=== PATIENT | female | born 2000 | race Caucasian/White ===

== ENCOUNTER 2022-08-02 15:06 | Inpatient (IN) | payer BC ==
[2022-08-02] MEDS ORDERED: ALBUTEROL NEBULIZED 2.5 MG/3 ML INHALATION STA (16:28)
[2022-08-02] MEDS ORDERED: IPRATROPIUM 0.5 MG/2.5 ML NEBU INHALATION STA (16:28)
[2022-08-02] MEDS ORDERED: DEXAMETHASONE SOD PHOSPHATE 10 MG/ML 1 ML VIAL IVP STA (16:28)
[2022-08-02] MEDS: MAGNESIUM SULFATE-D5W PMX 1 GM in DEXTROSE/WATER 1 100ML.BAG IVPB SCH ×2 (16:42→17:58)
[2022-08-02 16:57] LABS: Basophils # (A) 0.1 k/uL (0-0.2); Basophils % (A) 0 %; Eosinophils # (A) 0.4 k/uL (0-0.7); Eosinophils % (A) 3 %; HCT 42.8 % (34.0-46.0); HGB 14.9 gm/dL (11.4-16.0); Lymphocytes # (A) 0.6 k/uL (1.0-4.8); Lymphocytes % (A) 4 %; MCH 30.5 pg (25.0-35.0); MCHC 34.8 g/dL (31.0-37.0); MCV 87.4 fL (80.0-100.0); Mean Platelet Volume 8.4; Monocytes # (A) 0.6 k/uL (0-1.0); Monocytes % (A) 4 %; Neutrophils # (A) 15.5 k/uL (1.3-7.7); Neutrophils % (A) 90 %; Platelet Count 275 k/uL (150-450); RBC 4.89 m/uL (3.80-5.40); RDW 13.6 % (11.5-15.5); WBC 17.4 k/uL (3.8-10.6)
[2022-08-02 17:06] LABS: ALT 20 U/L (4-34); AST 19 U/L (14-36); African American GFR (CKD) >90 (>60 ml/min/1.73 sqM); Albumin 4.7 g/dL (3.5-5.0); Alkaline Phosphatase 124 U/L (38-126); Anion Gap 10 mmol/L; Blood Urea Nitrogen 17 mg/dL (7-17); Calcium 9.3 mg/dL (8.4-10.2); Carbon Dioxide 25 mmol/L (22-30); Chloride 106 mmol/L (98-107); Glucose 95 mg/dL (74-99); Magnesium 1.9 mg/dL (1.6-2.3); Non-African American GFR(CKD) >90 (>60 ml/min/1.73 sqM); Sodium 141 mmol/L (137-145); Total Bilirubin 0.5 mg/dL (0.2-1.3); Total Protein 7.6 g/dL (6.3-8.2)
[2022-08-02 17:07] LABS: Partial Thromboplastin Time 24.6 sec (22.0-30.0); Prothrombin Time 10.6 sec (9.0-12.0)
--- NOTE | 2022-08-02 17:08 | XR ---
EXAMINATION TYPE: XR chest 2V DATE OF EXAM: 08/02/2022 COMPARISON: NONE HISTORY: Short of breath TECHNIQUE: 2 view FINDINGS: Heart and mediastinum are normal. Lungs are clear. Diaphragm is normal. Bony thorax is inta ct. IMPRESSION: Normal chest.
--- NOTE | 2022-08-02 17:33 | ED ---
General Adult HPI - General Chief complaint: Shortness of Breath Stated complaint: SOB Time Seen by Provider: 08/02/22 15:54 Source: patient, family Mode of arrival: wheelchair Limitations: no limitations - History of Present Illness Initial comments: This is a 21-year-old female with a past medical history including asthma presents emergency department for increasing terms of breath. The patient stated that this shortness of breath began acutely at 9:30 PM last night. The patient stated that she has had multiple breathing treatments at home without any relief so she came to the emergency department. The patient did state that she had to sit upright and tripoding or to help her breathing. The patient was also speaking in shortened sentences secondary to tachypnea and shortness of breath. The patient stated that she has never been hospitalized for her asthma and has never been intubated. The patient did state though she has intermittent issues with asthma for the last several years. The patient is not on a long acting inhaled inhaler. The patient denied any other acute pain or complaints but did state that the weather changes are usually to blame for her exacerbations of her asthma. The patient denied any recent sick contacts and denied any fevers and chills. - Related Data Home Medications Medication Instructions Recorded Confirmed Albuterol Nebulized [Ventolin 2.5 mg INHALATION RT-Q4H 08/02/22 08/02/22 Nebulized] Albuterol Sulfate [Albuterol 2 puff PO RT-QID PRN 08/02/22 08/02/22 Sulfate Hfa] norgestimate-ethinyl estradioL 1 tab PO DAILY 08/02/22 08/02/22 [Irw-Vn-Zwzyqwaj Tablet] Allergies Allergy/AdvReac Type Severity Reaction Status Date / Time tree nut [Pecan] Allergy Anaphylaxis Verified 08/02/22 15:33 walnut Allergy Anaphylaxis Verified 08/02/22 15:33 Review of Systems ROS Statement: Those systems with pertinent positive or pertinent negative responses have been documented in the HPI. ROS Other: All systems not noted in ROS Statement are negative. Past Medical History Past Medical History: Asthma History of Any Multi-Drug Resistant Organisms: None Reported Past Psychological History: No Psychological Hx Reported Smoking Status: Never smoker Past Alcohol Use History: Occasional Past Drug Use History: None Reported General Exam Limitations: no limitations General appearance: alert, other (Tachypneic with respiratory distress noted, tripoding) Head exam: Present: atraumatic, normocephalic Eye exam: Present: normal appearance, PERRL Pupils: Present: normal accommodation ENT exam: Present: normal exam, normal oropharynx, mucous membranes moist Neck exam: Present: normal inspection, full ROM Respiratory exam: Present: wheezes, accessory muscle use, decreased breath sounds Cardiovascular Exam: Present: normal rhythm, tachycardia, normal heart sounds GI/Abdominal exam: Present: soft, normal bowel sounds Extremities exam: Present: normal inspection, full ROM Back exam: Present: normal inspection, full ROM Neurological exam: Present: alert, oriented X3, CN II-XII intact Psychiatric exam: Present: normal affect, normal mood Skin exam: Present: warm, dry Course Vital Signs 08/02/22 08/02/22 08/02/22 15:26 15:45 16:04 Temperature 98.3 F Pulse Rate 132 H 131 H 126 H Respiratory 18 36 H Rate Blood Pressure 123/75 O2 Sat by Pulse 89 L 87 L 91 L Oximetry 08/02/22 08/02/22 08/02/22 16:45 17:06 17:16 Temperature Pulse Rate 129 H 130 H Respiratory Rate Blood Pressure O2 Sat by Pulse 89 L Oximetry 08/02/22 18:48 Temperature Pulse Rate 123 H Respiratory 28 H Rate Blood Pressure 129/93 O2 Sat by Pulse 90 L Oximetry EKG Findings - EKG Comments: EKG Findings:: An EKG was read by myself and showed a rate of 122, MA interval 145, QRS duration 88 and QTC 383. This EKG showed sinus tachycardia without any ST segment elevations or depressions noted. There were no old EKGs for co mparison at this time. Medical Decision Making - Medical Decision Making The patient was seen and evaluated emergency department. Physical exam, the patient was resting in bed in moderate respiratory distress and tachypneic. The patient was also tachycardic on arrival as well as hypoxic at 87% on room air. Due to the nature the patient's exacerbation, a chest x-ray was obtained as was COVID-19 swab. The patient did receive albuterol and Atrovent as well as Decadron and magnesium. On reevaluation, the patient had improvement of her breathing however was still tachycardic and mildly tachypneic. Due to the patient's continued tachypnea and tachycardia in the setting of hypoxia as well, the patient did have an asthma exacerbation and did require inpatient admission. The patient's primary care physician, Dr. Godinez, was contacted and did agree for admission. He did request 125 mg of side mental every 6 as well as a DuoNeb ordered q4h. He also requested that pulmonology, Dr. Dye, be placed on consult. These orders were placed and the patient was told this plan. The patient was agreeable to this and was admitted in stable condition. - Lab Data Result diagrams: 08/02/22 16:34 08/02/22 16:34 Lab Results 08/02/22 08/02/22 08/02/22 Range/Units 16:34 16:34 16:34 WBC 17.4 H (3.8-10.6) k/uL RBC 4.89 (3.80-5.40) m/uL Hgb 14.9 (11.4-16.0) gm/dL Hct 42.8 (34.0-46.0) % MCV 87.4 (80.0-100.0) fL MCH 30.5 (25.0-35.0) pg MCHC 34.8 (31.0-37.0) g/dL RDW 13.6 (11.5-15.5) % Plt Count 275 (150-450) k/uL MPV 8.4 Neutrophils % 90 % Lymphocytes % 4 % Monocytes % 4 % Eosinophils % 3 % Basophils % 0 % Neutrophils # 15.5 H (1.3-7.7) k/uL Lymphocytes # 0.6 L (1.0-4.8) k/uL Monocytes # 0.6 (0-1.0) k/uL Eosinophils # 0.4 (0-0.7) k/uL Basophils # 0.1 (0-0.2) k/uL PT 10.6 (9.0-12.0) sec INR 1.0 (<1.2) APTT 24.6 (22.0-30.0) sec Sodium 141 (137-145) mmol/L Potassium 4.0 (3.5-5.1) mmol/L Chloride 106 (98-107) mmol/L Carbon Dioxide 25 (22-30) mmol/L Anion Gap 10 mmol/L BUN 17 (7-17) mg/dL Creatinine 0.75 (0.52-1.04) mg/dL Est GFR (CKD-EPI)AfAm >90 (>60 ml/min/1.73 sqM) Est GFR (CKD-EPI)NonAf >90 (>60 ml/min/1.73 sqM) Glucose 95 (74-99) mg/dL Calcium 9.3 (8.4-10.2) mg/dL Magnesium 1.9 (1.6-2.3) mg/dL Total Bilirubin 0.5 (0.2-1.3) mg/dL AST 19 (14-36) U/L ALT 20 (4-34) U/L Alkaline Phosphatase 124 (38-126) U/L Troponin I (0.000-0.034) ng/mL Total Protein 7.6 (6.3-8.2) g/dL Albumin 4.7 (3.5-5.0) g/dL Coronavirus (PCR) (Not Detectd) 08/02/22 08/02/22 Range/Units 16:34 16:34 WBC (3.8-10.6) k/uL RBC (3.80-5.40) m/uL Hgb (11.4-16.0) gm/dL Hct (34.0-46.0) % MCV (80.0-100.0) fL MCH (25.0-35.0) pg MCHC (31.0-37.0) g/dL RDW (11.5-15.5) % Plt Count (150-450) k/uL MPV Neutrophils % % Lymphocytes % % Monocytes % % Eosinophils % % Basophils % % Neutrophils # (1.3-7.7) k/uL Lymphocytes # (1.0-4.8) k/uL Monocytes # (0-1.0) k/uL Eosinophils # (0-0.7) k/uL Basophils # (0-0.2) k/uL PT (9.0-12.0) sec INR (<1.2) APTT (22.0-30.0) sec Sodium (137-145) mmol/L Potassium (3.5-5.1) mmol/L Chloride (98-107) mmol/L Carbon Dioxide (22-30) mmol/L Anion Gap mmol/L BUN (7-17) mg/dL Creatinine (0.52-1.04) mg/dL Est GFR (CKD-EPI)AfAm (>60 ml/min/1.73 sqM) Est GFR (CKD-EPI)NonAf (>60 ml/min/1.73 sqM) Glucose (74-99) mg/dL Calcium (8.4-10.2) mg/dL Magnesium (1.6-2.3) mg/dL Total Bilirubin (0.2-1.3) mg/dL AST (14-36) U/L ALT (4-34) U/L Alkaline Phosphatase (38-126) U/L Troponin I <0.012 (0.000-0.034) ng/mL Total Protein (6.3-8.2) g/dL Albumin (3.5-5.0) g/dL Coronavirus (PCR) Not Detected (Not Detectd) Critical Care Time Critical Care Time: Yes Total Critical Care Time: 45 Disposition Clinical Impression: Asthma with status asthmaticus Disposition: ADMITTED IP TO THIS [facility] Condition: Stable Is patient prescribed a controlled substance at d/c from ED?: No Referrals: Jairo Godinez MD [Primary Care Provider] - 1-2 days Time of Disposition: 19:40 Decision Date: 08/02/22 Decision Time: 19:40
[2022-08-02] MEDS ORDERED: NALOXONE 0.4 MG/ML 1 ML VIAL IV PRN (19:42)
[2022-08-02] MEDS ORDERED: methylPREDNISolone SOD SUCCIN 125 MG in SODIUM CHLORIDE 0.9% 100 ML IVPB SCH (19:45)
[2022-08-02] MEDS: IPRATROPIUM-ALBUTEROL 3 ML NEB INHALATION SCH ×2 (20:26→23:28)
[2022-08-02 21:48] VITALS: RESP 18
[2022-08-02] MEDS: methylPREDNISolone SOD SUCCI 125 MG/2 ML VIAL IV SCH (22:05)
[2022-08-02 22:35] LABS: Appearance,Urine Cloudy (Clear); Bilirubin,Urine Negative (Negative); Blood,Urine Negative (Negative); Color,Urine Yellow; Glucose,Urine (UA) Negative (Negative); Ketones,Urine 3+ (Negative); Leukocyte Esterase,Urine Trace (Negative); Mucus,Urine Many /hpf; Nitrite,Urine Negative (Negative); Protein,Urine 1+ (Negative); RBC,Urine 4 /hpf (0-5); Specific Gravity,Urine 1.032 (1.001-1.035); Squamous Epithelial Cell,Urine 6 /hpf (0-4); Urobilinogen,Urine <2.0 mg/dL (<2.0); WBC,Urine 8 /hpf (0-5)
[2022-08-03] MEDS: methylPREDNISolone SOD SUCCI 125 MG/2 ML VIAL IV SCH ×2 (01:57→07:59)
[2022-08-03] MEDS: IPRATROPIUM-ALBUTEROL 3 ML NEB INHALATION SCH ×2 (05:00→08:20)
[2022-08-03 07:56] VITALS: BP 121/79; TEMP 97.9
--- NOTE | 2022-08-03 10:56 | P.HPIM ---
History of Present Illness H&P Date: 08/03/22 Chief Complaint: Shortness of breath Cyn 21-year-old white female with the practice. She's currently on Symbicort, albuterol nebs solution which she does daily and albuterol HFA as needed for her asthma. She reports having stomach flu on Thursday with nausea and vomiting. She denied any diarrhea or constipation. She said the next day, Thursday, August 02 she been experiencing increased shortness of breath or wheeze from her asthma. This progressed to be quite severe and brought her to emergency room. He is tried multiple breathing treatments at home. In the emergency room she was found to be hypoxic with a pulse oximetry 87% and tachycardia, sinus at 131. She was afebrile, Covid negative. 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 This morning she feels improved after IV Solu-Medrol and Decadron, [id number]-[id number]-[id number] updrafts every 4, and some sleep. She had a noted leukocytosis with left shift. Laboratory studies otherwise were normal. Review of Systems All systems: negative Past Medical History Past Medical History: Asthma History of Any Multi-Drug Resistant Organisms: None Reported Past Psychological History: No Psychological Hx Reported Smoking Status: Never smoker Past Alcohol Use History: Occasional Past Drug Use History: None Reported Medications and Allergies Home Medications Medication Instructions Recorded Confirmed Type Albuterol Nebulized [Ventolin 2.5 mg INHALATION RT-Q4H 08/02/22 08/02/22 History Nebulized] Albuterol Sulfate [Albuterol 2 puff PO RT-QID PRN 08/02/22 08/02/22 History Sulfate Hfa] norgestimate-ethinyl estradioL 1 tab PO DAILY 08/02/22 08/02/22 History [Gnj-Ma-[id number] Tablet] Budesonide/Formoterol Fumarate 2 inh INHALATION BID 08/03/22 08/03/22 History [Symbicort 160-4.5 Mcg Inhaler] Allergies Allergy/AdvReac Type Severity Reaction Status Date / Time tree nut [Pecan] Allergy Anaphylaxis Verified 08/02/22 15:33 walnut Allergy Anaphylaxis Verified 08/02/22 15:33 Physical Exam Vitals: Vital Signs Temp Pulse Pulse Resp BP BP Pulse Ox 08/03/22 08:29 118 H 08/03/22 08:20 116 H 08/03/22 07:56 97.9 F 82 18 121/79 95 08/03/22 05:11 120 H 08/03/22 05:01 118 H 08/03/22 02:00 98.3 F 117 H 18 142/82 95 08/02/22 23:40 122 H 08/02/22 23:30 119 H 08/02/22 22:00 18 08/02/22 21:47 98.0 F 122 H 18 121/77 93 L 08/02/22 20:32 115 H 08/02/22 20:30 122 H 20 121/90 90 L 08/02/22 20:26 121 H 08/02/22 18:48 123 H 28 H 129/93 90 L 08/02/22 17:16 130 H 08/02/22 17:06 129 H 08/02/22 16:45 89 L 08/02/22 16:04 126 H 36 H 91 L 08/02/22 15:45 131 H 87 L 08/02/22 15:26 98.3 F 132 H 18 123/75 89 L Intake and Output 08/02/22 08/03/22 08/03/22 22:59 06:59 14:59 Other: # Voids 3 Weight 104.326 kg GENERAL: Well-appearing, well-nourished and in no acute distress. HEAD: Atraumatic, normocephalic. EYES: Pupils equal round and reactive to light, extraocular movements intact, sclera anicteric, conjunctiva are normal. ENT:nares patent, oropharynx clear without exudates. Moist mucous membranes. NECK: Normal range of motion, supple without lymphadenopathy or JVD, no thyromegaly LUNGS: Breath sounds with intermittent wheezing with deep breaths on inspiration, no rales or rhonchi HEART: Regular rate and rhythm without murmurs, rubs or gallops.S1S2 Normal ABDOMEN: Soft, nontender, normoactive bowel sounds. No guarding, no rebound. No masses appreciated. EXTREMITIES: Normal range of motion, no pitting or edema. No clubbing or cyanosis. NEUROLOGICAL: Cranial nerves II through XII grossly intact. Normal speech, normal gait. PSYCH: Normal mood, normal affect. SKIN: Warm, Dry, normal turgor, no rashes or lesions noted. Results CBC & Chem 7: 08/02/22 16:34 11/19/22 16:34 Labs: Abnormal Lab Results - Last 24 Hours (Table) 08/02/22 08/02/22 Range/Units 16:28 16:34 WBC 17.4 H (3.8-10.6) k/uL Neutrophils # 15.5 H (1.3-7.7) k/uL Lymphocytes # 0.6 L (1.0-4.8) k/uL Urine Appearance Cloudy H (Clear) Urine Protein 1+ H (Negative) Urine Ketones 3+ H (Negative) Ur Leukocyte Esterase Trace H (Negative) Urine WBC 8 H (0-5) /hpf Ur Squamous Epith Cells 6 H (0-4) /hpf Urine Mucus Many H (None) /hpf Chest x-ray: report reviewed Thrombosis Risk Factor Assmnt - DVT/VTE Prophylaxis DVT/VTE Prophylaxis: Low risk, early ambulation encouraged - Choose All That Apply Any of the Below Risk Factors Present?: Yes Each Factor Represents 1 point: Medical pt on bed rest Other Risk Factors: No Other congenital or acquired thrombophilia - If yes, enter type in comment: No Thrombosis Risk Factor Assessment Total Risk Factor Score: 1 Thrombosis Risk Factor Assessment Level: Low Risk Assessment and Plan (1) Asthma with status asthmaticus Current Visit: Yes Status: Acute Code(s): J45.902 - UNSPECIFIED ASTHMA WITH STATUS ASTHMATICUS SNOMED Code(s): 925235461 Plan: She is feeling much improved after having received IV Solu-Medrol 60 every 6 after receiving a bolus of 125 mg. She is receiving updrafts. We discussed her status and that she takes albuterol solution daily via nebulizer. We discussed additional medications I will and those. Because she is feeling somewhat better she's requested discharge.
--- NOTE | 2022-08-03 11:04 | P.DS ---
Providers Date of admission: 08/02/22 19:45 Expected date of discharge: 08/03/22 Attending physician: Jairo Godinez Consults: 08/02/22 19:42 Consult Physician Routine Consulting Provider: Flash Dye Consult Reason/Comments: Asthma exas Do you want consulting provider notified?: Yes, Notify in am Primary care physician: Jairo Godinez - Discharge Diagnosis(es) (1) Asthma with status asthmaticus Current Visit: Yes Status: Acute (2) Leukocytosis, unspecified Current Visit: Yes Status: Acute (3) Sinus tachycardia Current Visit: Yes Status: Acute Hospital Course: This is a 21-year-old white female with the practice. She's currently on Symbicort, albuterol nebs solution which she does daily and albuterol HFA as needed for her asthma. She reports having stomach flu on Thursday with nausea and vomiting. She denied any diarrhea or constipation. She said the next day, Thursday, August 02 she been experiencing increased shortness of breath or whe suzi from her asthma. This progressed to be quite severe and brought her to emergency room. He is tried multiple breathing treatments at home. In the emergency room she was found to be hypoxic with a pulse oximetry 87% and tachycardia, sinus at 131. She was afebrile, Covid negative. 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 This morning she feels improved after IV Solu-Medrol and Decadron, around-the- clock updrafts every 4, and some sleep. She had a noted leukocytosis with left shift. Laboratory studies otherwise were normal. 08/03/2022: Patient is doing much better. She does have a reactive leukocytosis probably from the steroids and a recent stomach flu. No evidence of any infections. She is much improved after the steroids and updraft treatments. She is requesting discharge. Patient was instructed should she have any worsening symptoms to please come back to emergency room or contact our practice immediately. Patient Condition at Discharge: Stable Plan - Discharge Summary Discharge Rx Participant: No New Discharge Prescriptions: New Montelukast [Singulair] 10 mg PO HS #30 tab predniSONE 10 mg PO DAILY 10 Days #30 tab Continue Albuterol Sulfate [Albuterol Sulfate Hfa] 2 puff PO RT-QID PRN PRN Reason: Shortness Of Breath Albuterol Nebulized [Ventolin Nebulized] 2.5 mg INHALATION RT-Q4H Budesonide/Formoterol Fumarate [Symbicort 160-4.5 Mcg Inhaler] 2 inh INHALATION BID #1 each norgestimate-ethinyl estradioL [Ycu-Kg-Gezzrapz Tablet] 1 tab PO DAILY Discharge Medication List Albuterol Nebulized [Ventolin Nebulized] 2.5 mg INHALATION RT-Q4H 08/02/22 [History] Albuterol Sulfate [Albuterol Sulfate Hfa] 2 puff PO RT-QID PRN 08/02/22 [History] norgestimate-ethinyl estradioL [Ccv-Fj-Qcrlmhcx Tablet] 1 tab PO DAILY 08/02/22 [History] Budesonide/Formoterol Fumarate [Symbicort 160-4.5 Mcg Inhaler] 2 inh INHALATION BID #1 each 08/03/22 [Rx] Montelukast [Singulair] 10 mg PO HS #30 tab 08/03/22 [Rx] predniSONE 10 mg PO DAILY 10 Days #30 tab 08/03/22 [Rx] Follow up Appointment(s)/Referral(s): Jairo Godinez MD [Primary Care Provider] - 1-2 days Flash Dye DO [Doctor of Osteopathic Medicine] - 1 Week Discharge Disposition: HOME SELF-CARE
[2022-08-03 11:57] VITALS: PULSE 112
[2022-08-03] MEDS ORDERED: ALBUTEROL NEBULIZED 2.5 MG/3 ML INHALATION SCH (12:00)
[2022-08-03] MEDS ORDERED: NORGESTIMATE ETHINYL ESTRADIOL PO SCH (12:00)
[2022-08-03] MEDS ORDERED: SYMBICORT 160-4.5 MCG INHALER INHALATION SCH (21:00)
[2022-08-03] MEDS ORDERED: MONTELUKAST 10 MG TAB PO SCH (21:00)
--- NOTE | 2022-08-04 00:29 | CONS ---
CONSULTATION This is a Pulmonary/Critical Care consultation. HISTORY OF PRESENT ILLNESS: This is a 21-year-old female who sees Dr. Godinez for her asthma. She presented to the emergency department at about 3 o'clock yesterday with an asthma flare up. She came with complaints of shortness of breath, chest tightness, cough, and wheezing. She typically takes Symbicort at home for her asthma, along with a nebulizer machine and albuterol inhaler. She has never been admitted for her asthma. She has had asthma all her life. She does not see a Sheet Metal Worker Supervisor. When I see her today, she is sitting in bed with her mother. She is on 2 L of oxygen. She is getting saline at KVO. She is feeling much better today than she did yesterday and states that she would like to be discharged home if possible. She denies any fever or chills. She used to see Dr. Andersen for her asthma. She denies any significant phlegm production. She is not sure what triggered her asthma at this time, and again, this is her only admission ever for asthma. PAST MEDICAL HISTORY: Includes only asthma. PAST SURGICAL HISTORY: Unremarkable. SOCIAL HISTORY: Negative for tobacco, alcohol, or illicit drug use. FAMILY HISTORY: Positive for COPD. 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 ALLERGIES: Include tree nuts and walnuts. HOME MEDICATIONS: As mentioned include, 1. Albuterol inhaler. 2. Albuterol updrafts. 3. control pills. 4. Symbicort. The rest of the history is not too remarkable. REVIEW OF SYSTEMS: CONSTITUTIONAL: Negative. NEUROLOGIC: Negative. HEENT: Negative. CARDIOVASCULAR: Negative. PULMONARY: Shortness of breath, chest tightness, wheezing, and cough. GI: Negative. : Negative. RHEUMATOLOGIC: Negative. IMMUNOLOGIC: Negative. DERMATOLOGIC: Negative. PHYSICAL EXAMINATION: VITAL SIGNS: Current vital signs include the temperature which is 98.2, heart rate which is 88, respiratory rate which is 22, saturations which are 98% on 2 L, and a blood pressure which is 138/69. She appears in no acute distress. Nasal O2 in place. HEENT: Grossly unremarkable. NECK: Supple. Full range of motion. No adenopathy. Neck veins are flat. CARDIOVASCULAR: Reveals regular rhythm, rate. S1, S2 normal. No heart murmur. LUNGS: Revealed some very fine expiratory wheezes. No rhonchi. No crackles. Breath sounds equal. ABDOMEN: Soft. Bowel sounds are heard. EXTREMITIES: Intact. No cyanosis, clubbing, or edema. SKIN: Without rash. NEUROLOGIC: Brief, but nonfocal. LABORATORY DATA: Include a white count 17.4, with a normal hemoglobin, hematocrit, and platelet count. Coagulation studies are normal. Sodium 141, potassium 4, chloride 106, CO2 of 25, anion gap 10, BUN 17, and creatinine 0.75. Liver function tests are normal. Testing for coronavirus was negative. A chest x-ray was done and was normal. Medications are reviewed. ASSESSMENT: Asthma exacerbation, trigger unclear. May relate to weather. PLAN: The patient may be discharged home today. We will leave that up to Dr. Godinez. She should resume her Symbicort and her nebulizer treatments and/or albuterol inhaler. In addition, the patient should be discharged home on a prednisone burst and taper. I would be happy to see her as an outpatient. No additional recommendations are made. Prognosis is guarded. MMODL / IJN: [id number] /
[2022-08-04] MEDS ORDERED: NORGESTIMATE ETHINYL ESTRADIOL PO SCH (09:00)
== END 2022-08-03 13:01 | disposition home or self-care (01) | DRG 203 ==
LOC: EC 15:06 → 4SSUR 19:45
PROVIDERS: ADMIT Family Medicine; ATTEND Family Medicine
DX: J45.902 Unspecified asthma with status asthmaticus (principal); R00.0 Tachycardia, unspecified; A08.4 Viral intestinal infection, unspecified; R09.02 Hypoxemia; Z20.822 Contact with and (suspected) exposure to COVID-19; Z79.51 Long term (current) use of inhaled steroids; Z79.899 Other long term (current) drug therapy; Z91.018 Allergy to other foods
CPT/HCPCS: 36415; 71046; 80053; 81001; 81025; 83735; 84484; 85025; 85610; 85730; 87635; 94640; 96365; 96366; 96375; 99285; 99291

== ENCOUNTER 2022-08-03 15:13 | Inpatient (IN) | payer BC ==
[2022-08-03] MEDS ORDERED: ALBUTEROL NEBULIZED 2.5 MG/3 ML INHALATION STA (15:33)
[2022-08-03 16:50] LABS: Basophils % (A) 0 %; Eosinophils # (A) 0.1 k/uL (0-0.7); Eosinophils % (A) 1 %; HGB 14.3 gm/dL (11.4-16.0); Lymphocytes # (A) 0.7 k/uL (1.0-4.8); Lymphocytes % (A) 4 %; MCH 29.8 pg (25.0-35.0); MCV 87.5 fL (80.0-100.0); Mean Platelet Volume 8.4; Monocytes # (A) 0.4 k/uL (0-1.0); Monocytes % (A) 2 %; Neutrophils # (A) 18.3 k/uL (1.3-7.7); Neutrophils % (A) 93 %; Platelet Count 286 k/uL (150-450); RDW 13.7 % (11.5-15.5); WBC 19.6 k/uL (3.8-10.6)
[2022-08-03 17:01] LABS: ALT 23 U/L (4-34); AST 22 U/L (14-36); African American GFR (CKD) >90 (>60 ml/min/1.73 sqM); Albumin 4.7 g/dL (3.5-5.0); Alkaline Phosphatase 117 U/L (38-126); Anion Gap 10 mmol/L; Blood Urea Nitrogen 16 mg/dL (7-17); Calcium 9.9 mg/dL (8.4-10.2); Carbon Dioxide 22 mmol/L (22-30); Chloride 108 mmol/L (98-107); Glucose 152 mg/dL (74-99); Magnesium 2.3 mg/dL (1.6-2.3); Non-African American GFR(CKD) >90 (>60 ml/min/1.73 sqM); Potassium 4.2 mmol/L (3.5-5.1); Sodium 140 mmol/L (137-145); Total Bilirubin 0.3 mg/dL (0.2-1.3); Total Protein 7.8 g/dL (6.3-8.2)
[2022-08-03 17:08] LABS: Partial Thromboplastin Time 23.1 sec (22.0-30.0); Prothrombin Time 10.5 sec (9.0-12.0)
--- NOTE | 2022-08-03 17:10 | ED ---
General Adult HPI - General Chief complaint: Shortness of Breath Stated complaint: asthma Source: patient Mode of arrival: ambulatory Limitations: no limitations - History of Present Illness Initial comments: This is a 21-year-old female with a past medical history including asthma presents emergency department for continued shortness of breath. The patient was admitted to the hospital last evening at stated that they discharged her from the floor this morning after not being taken off of oxygen. The patient stated that as she got home she continued to have increasing shortness of breath and inability to catch her breath. The patient then stated that she tried to self medicate at home with a nebulizer but had no relief. The patient came back to the emergency department due to increasing shortness of breath. The patient was speaking in full sentences however had artery received a breathing treatment prior to my evaluation. The patient was resting in bed comfortably but stated that she was frustrated that she was still having shortness of breath as well as increasing difficulty breathing with exertion. The patient denied any new complaints at this time. - Related Data Home Medications Medication Instructions Recorded Confirmed Albuterol Nebulized [Ventolin 2.5 mg INHALATION RT-Q4H 08/02/22 08/02/22 Nebulized] Albuterol Sulfate [Albuterol 2 puff PO RT-QID PRN 08/02/22 08/02/22 Sulfate Hfa] norgestimate-ethinyl estradioL 1 tab PO DAILY 08/02/22 08/02/22 [Ptx-Br-Vgmvgpzp Tablet] Previous Rx's Medication Instructions Recorded Budesonide/Formoterol Fumarate 2 inh INHALATION BID #1 each 08/03/22 [Symbicort 160-4.5 Mcg Inhaler] Montelukast [Singulair] 10 mg PO HS #30 tab 08/03/22 predniSONE 10 mg PO DAILY 10 Days #30 tab 08/03/22 Allergies Allergy/AdvReac Type Severity Reaction Status Date / Time tree nut [Pecan] Allergy Anaphylaxis Verified 08/03/22 15:27 walnut Allergy Anaphylaxis Verified 08/03/22 15:27 Review of Systems ROS Statement: Those systems with pertinent positive or pertinent negative responses have been documented in the HPI. ROS Other: All systems not noted in ROS Statement are negative. Past Medical History Past Medical History: Asthma History of Any Multi-Drug Resistant Organisms: None Reported Past Surgical History: No Surgical Hx Reported Past Psychological History: No Psychological Hx Reported Smoking Status: Never smoker Past Alcohol Use History: Occasional Past Drug Use History: None Reported General Exam Limitations: no limitations General appearance: alert, in no apparent distress Head exam: Present: atraumatic, normocephalic, normal inspection Eye exam: Present: normal appearance, PERRL Pupils: Present: normal accommodation ENT exam: Present: normal exam, normal oropharynx, mucous membranes moist Neck exam: Present: normal inspection Respiratory exam: Present: wheezes, decreased breath sounds Cardiovascular Exam: Present: normal rhythm, tachycardia GI/Abdominal exam: Present: soft, normal bowel sounds Extremities exam: Present: normal inspection, full ROM Back exam: Present: normal inspection, full ROM Neurological exam: Present: alert, oriented X3, CN II-XII intact Psychiatric exam: Present: normal affect, normal mood Skin exam: Present: warm, dry Course Vital Signs 08/03/22 08/03/22 08/03/22 15:24 15:33 15:41 Temperature 97.8 F Pulse Rate 124 H 120 H 113 H Respiratory 20 32 H Rate Blood Pressure 128/69 O2 Sat by Pulse 90 L 90 L Oximetry 08/03/22 08/03/22 15:52 16:35 Temperature Pulse Rate 119 H 101 H Respiratory 24 Rate Blood Pressure O2 Sat by Pulse 93 L Oximetry Medical Decision Making - Medical Decision Making The patient was seen and evaluated emergency department. On physical exam, the patient was resting in bed, with tachycardia minor tachypnea. Vital signs did show hypoxia on arrival as well as tachycardia. The patient was placed on 3 L of nasal cannula oxygen and her oxygen did increase to 93%. The patient received a breathing treatment on arrival. Because the patient continued asthma exacerbation in the setting of requiring further oxygen, the patient will require admission once again. Inhalatory pulse ox was obtained and showed 88%. Laboratory workup was also obtained at this time including a d-dimer. No EKG or cord testing or chest x-ray was performed as this was performed yesterday and was within normal limits. Laboratory workup was within normal limits and d- dimer was negative. The patient remained stable and the care physician, Dr. Godinez, was contacted and accepted the admission. He did request pulmonology consult once again as well as Singulair, Symbicort, Solu-Medrol and DuoNeb's when necessary. These original place and the patient was told this plan and was agreeable. The patient was admitted in stable condition. - Lab Data Result diagrams: 08/03/22 16:33 08/03/22 16:33 Lab Results 08/03/22 08/03/22 08/03/22 Range/Units 16:33 16:33 16:33 WBC 19.6 H (3.8-10.6) k/uL RBC 4.80 (3.80-5.40) m/uL Hgb 14.3 (11.4-16.0) gm/dL Hct 42.0 (34.0-46.0) % MCV 87.5 (80.0-100.0) fL MCH 29.8 (25.0-35.0) pg MCHC 34.0 (31.0-37.0) g/dL RDW 13.7 (11.5-15.5) % Plt Count 286 (150-450) k/uL MPV 8.4 Neutrophils % 93 % Lymphocytes % 4 % Monocytes % 2 % Eosinophils % 1 % Basophils % 0 % Neutrophils # 18.3 H (1.3-7.7) k/uL Lymphocytes # 0.7 L (1.0-4.8) k/uL Monocytes # 0.4 (0-1.0) k/uL Eosinophils # 0.1 (0-0.7) k/uL Basophils # 0.0 (0-0.2) k/uL PT 10.5 (9.0-12.0) sec INR 1.0 (<1.2) APTT 23.1 (22.0-30.0) sec D-Dimer 0.23 (<0.60) mg/L FEU Sodium 140 (137-145) mmol/L Potassium 4.2 (3.5-5.1) mmol/L Chloride 108 H (98-107) mmol/L Carbon Dioxide 22 (22-30) mmol/L Anion Gap 10 mmol/L BUN 16 (7-17) mg/dL Creatinine 0.67 (0.52-1.04) mg/dL Est GFR (CKD-EPI)AfAm >90 (>60 ml/min/1.73 sqM) Est GFR (CKD-EPI)NonAf >90 (>60 ml/min/1.73 sqM) Glucose 152 H (74-99) mg/dL Calcium 9.9 (8.4-10.2) mg/dL Magnesium 2.3 (1.6-2.3) mg/dL Total Bilirubin 0.3 (0.2-1.3) mg/dL AST 22 (14-36) U/L ALT 23 (4-34) U/L Alkaline Phosphatase 117 (38-126) U/L Troponin I (0.000-0.034) ng/mL NT-Pro-B Natriuret Pep pg/mL Total Protein 7.8 (6.3-8.2) g/dL Albumin 4.7 (3.5-5.0) g/dL 08/03/22 08/03/22 Range/Units 16:33 16:33 WBC (3.8-10.6) k/uL RBC (3.80-5.40) m/uL Hgb (11.4-16.0) gm/dL Hct (34.0-46.0) % MCV (80.0-100.0) fL MCH (25.0-35.0) pg MCHC (31.0-37.0) g/dL RDW (11.5-15.5) % Plt Count (150-450) k/uL MPV Neutrophils % % Lymphocytes % % Monocytes % % Eosinophils % % Basophils % % Neutrophils # (1.3-7.7) k/uL Lymphocytes # (1.0-4.8) k/uL Monocytes # (0-1.0) k/uL Eosinophils # (0-0.7) k/uL Basophils # (0-0.2) k/uL PT (9.0-12.0) sec INR (<1.2) APTT (22.0-30.0) sec D-Dimer (<0.60) mg/L FEU Sodium (137-145) mmol/L Potassium (3.5-5.1) mmol/L Chloride (98-107) mmol/L Carbon Dioxide (22-30) mmol/L Anion Gap mmol/L BUN (7-17) mg/dL Creatinine (0.52-1.04) mg/dL Est GFR (CKD-EPI)AfAm (>60 ml/min/1.73 sqM) Est GFR (CKD-EPI)NonAf (>60 ml/min/1.73 sqM) Glucose (74-99) mg/dL Calcium (8.4-10.2) mg/dL Magnesium (1.6-2.3) mg/dL Total Bilirubin (0.2-1.3) mg/dL AST (14-36) U/L ALT (4-34) U/L Alkaline Phosphatase (38-126) U/L Troponin I <0.012 (0.000-0.034) ng/mL NT-Pro-B Natriuret Pep 123 pg/mL Total Protein (6.3-8.2) g/dL Albumin (3.5-5.0) g/dL Disposition Clinical Impression: Asthma with status asthmaticus Disposition: ADMITTED IP TO THIS HOSP Condition: Stable Is patient prescribed a controlled substance at d/c from ED?: No Referrals: Jairo Godinez MD [Primary Care Provider] - 1-2 days Time of Disposition: 17:20 Decision Date: 08/03/22 Decision Time: 17:20
[2022-08-03] MEDS ORDERED: NALOXONE 0.4 MG/ML 1 ML VIAL IV PRN (18:12)
[2022-08-03] MEDS ORDERED: methylPREDNISolone SOD SUCCIN 125 MG in SODIUM CHLORIDE 0.9% 100 ML IVPB SCH (18:30)
[2022-08-03] MEDS: MONTELUKAST 10 MG TAB PO SCH (18:46)
[2022-08-03] MEDS: IPRATROPIUM-ALBUTEROL 3 ML NEB INHALATION PRN (19:51)
[2022-08-03] MEDS: SYMBICORT 160-4.5 MCG INHALER INHALATION SCH (19:51)
[2022-08-03] MEDS: MELATONIN 3 MG TABLET PO SCH (20:59)
[2022-08-03] MEDS: methylPREDNISolone SOD SUCCI 125 MG/2 ML VIAL IV SCH (20:59)
[2022-08-04] MEDS: methylPREDNISolone SOD SUCCI 125 MG/2 ML VIAL IV SCH ×3 (00:31→18:03)
[2022-08-04] MEDS: IPRATROPIUM-ALBUTEROL 3 ML NEB INHALATION PRN ×7 (00:49→20:50)
[2022-08-04] MEDS: SYMBICORT 160-4.5 MCG INHALER INHALATION SCH (07:24)
[2022-08-04] MEDS ORDERED: DEXTROSE 50% SYRINGE 50 ML IVP PRN ×2 (13:00)
--- NOTE | 2022-08-04 13:13 | P.HPIM ---
History of Present Illness H&P Date: 08/04/22 This is a 21-year-old female discharged yesterday with diagnosis of acute asthma exacerbation, exact trigger unclear. Treated with nebulized bronchodilators, IV steroids , oxygen and cleared by pulmonary for discharge. Reports at home she continued to feel wheezy, short of breath, attempted using her nebulized albuterol with minimal improvement and returned to the ER. Currently maintained on nebulized bronchodilators, IV steroids. Afebrile, elevated WBC, on steroids. Coronavirus not detected. Review of Systems Constitutional: Denied any fatigue denied any fever. Cardio vascular: denied any chest pain, palpitations Gastrointestinal denied any nausea vomiting Pulmonary: Positive shortness of breath cough Neurologic denied any new focal deficits ROS Statement: Those systems with pertinent positive or pertinent negative responses have been documented in the HPI. ROS Other: All systems not noted in ROS Statement are negative. Past Medical History Past Medical History: Asthma History of Any Multi-Drug Resistant Organisms: None Reported Past Surgical History: No Surgical Hx Reported Past Psychological History: No Psychological Hx Reported Smoking Status: Never smoker Past Alcohol Use History: Occasional Past Drug Use History: None Reported Medications and Allergies Home Medications Medication Instructions Recorded Confirmed Type Albuterol Nebulized [Ventolin 2.5 mg INHALATION RT-Q4H 08/02/22 08/03/22 History Nebulized] Albuterol Sulfate [Albuterol 2 puff INHALATION RT-QID PRN 08/02/22 08/03/22 History Sulfate Hfa] norgestimate-ethinyl estradioL 1 tab PO DAILY 08/02/22 08/03/22 History [[id number] Tablet] Budesonide/Formoterol Fumarate 2 puff INHALATION RT-BID 08/03/22 08/03/22 History [Symbicort 160-4.5 Mcg Inhaler] Montelukast [Singulair] 10 mg PO HS #30 tab 08/03/22 08/03/22 Rx predniSONE See Taper PO DAILY 08/03/22 08/03/22 History Allergies Allergy/AdvReac Type Severity Reaction Status Date / Time tree nut [Pecan] Allergy Anaphylaxis Verified 08/03/22 18:58 walnut Allergy Anaphylaxis Verified 08/03/22 18:58 Physical Exam Vitals: Vital Signs Temp Pulse Pulse Resp BP BP Pulse Ox 08/04/22 11:32 100 08/04/22 11:20 100 08/04/22 07:37 96 08/04/22 07:25 96 93 L 08/04/22 07:00 97.4 F L 95 16 105/63 93 L 08/04/22 04:29 98 08/04/22 04:19 110 H 08/04/22 03:48 98.0 F 99 17 117/72 95 08/04/22 01:01 97 08/04/22 00:43 103 H 08/03/22 20:11 112 H 08/03/22 19:51 104 H 08/03/22 18:53 97.9 F 99 18 117/74 94 L 08/03/22 18:28 101 H 28 H 103/67 94 L 08/03/22 16:35 101 H 24 93 L 08/03/22 15:52 119 H 08/03/22 15:41 113 H 08/03/22 15:33 120 H 32 H 90 L 08/03/22 15:24 97.8 F 124 H 20 128/69 90 L Intake and Output 08/03/22 08/04/22 08/04/22 22:59 06:59 14:59 Other: # Voids 1 2 Weight 104.326 kg GENERAL: Well-appearing, well-nourished and in no acute distress. HEAD: Atraumatic, normocephalic. EYES: Pupils equal round and reactive to light, extraocular movements intact, sclera anicteric, conjunctiva are normal. ENT:nares patent, oropharynx clear without exudates. Moist mucous membranes. NECK: Normal range of motion, supple without lymphadenopathy or JVD, no thyromegaly LUNGS: Unlabored, Breath sounds CTA HEART: Regular rate and rhythm without murmurs, rubs or gallops.S1S2 Normal ABDOMEN: Soft, nontender, normoactive bowel sounds. No guarding, no rebound. No masses appreciated. EXTREMITIES: Normal range of motion, no pitting or edema. No clubbing or cyanosis. NEUROLOGICAL: Cranial nerves II through XII grossly intact. No focal deficits PSYCH: Normal mood, normal affect. SKIN: Warm, Dry, normal turgor, no rashes noted. Results CBC & Chem 7: 08/03/22 16:33 08/03/22 16:33 Labs: Abnormal Lab Results - Last 24 Hours (Table) 08/03/22 08/03/22 Range/Units 16:33 16:33 WBC 19.6 H (3.8-10.6) k/uL Neutrophils # 18.3 H (1.3-7.7) k/uL Lymphocytes # 0.7 L (1.0-4.8) k/uL Chloride 108 H (98-107) mmol/L Glucose 152 H (74-99) mg/dL Assessment and Plan Assessment: Acute Asthma exacerbation Acute hypoxic respiratory failure secondary to the above Morbid obesity, BMI 37.1 Plan: Continue on current medication regime, monitoring and symptomatic treatm ent. Maintain nebulized bronchodilators, tapering of IV steroids in progress. Increase ambulation with weaning of O2 as tolerated. The impression and plan of care has been dictated as directed. : I performed a history and examination of this patient, discussed the same with the dictator. I agree with the dictator's note ,documented as a scribe. Any additional findings or plans will be noted.
[2022-08-04] MEDS: PANTOPRAZOLE 40 MG/10 ML VIAL IVP SCH (14:33)
--- NOTE | 2022-08-04 17:55 | P.CNPUL ---
History of Present Illness Consult date: 08/04/22 Requesting physician: Jairo Godinez Reason for consult: dyspnea, asthma Chief complaint: Shortness of breath, cough, congestion History of present illness: This a very pleasant 21-year-old female patient who follows with Dr. Godinez as her primary care provider. She has a history of mild intermittent chronic bronchial asthma and is maintained on Symbicort, Singulair, albuterol in the outpatient setting. She presented here to the emergency room yesterday with complaints of shortness of breath. She was just discharged from the hospital earlier in the morning and when she got home she stated she was still feeling short of breath. She came back to the emergency room for the same. She is seen today in consultation on the regular medical floor. She is currently sitting up in bed. Awake and alert in no acute distress. She is maintaining good O2 saturations in the 90s on room air. She does have some end expiratory wheeze. Dry nonproductive cough. No fever or chills. White count 19.6. Hemoglobin 14.3. D-dimer 0.23. Sodium 140. Potassium 4.2. Bicarb 22. BUN 16. Creati nine 0.67. She has been initiated on Symbicort, DuoNeb inhalations, IV Solu- Medrol and Singulair. She is breathing easier today compared to yesterday. Chest x-ray from 08/02/2022 revealed no acute pulmonary process. Review of Systems REVIEW OF SYSTEMS: CONSTITUTIONAL: Denies any recent significant weight loss or weight gain. EYES: Denies change in vision. EARS, NOSE, MOUTH, THROAT: Denies headaches, denies sore throat. CARDIOVASCULAR: Denies chest pain, palpitations or syncopal episodes. RESPIRATORY: Positive for shortness of breath, cough, congestion no hemoptysis. GASTROINTESTINAL: Denies change in appetite, denies abdominal pain GENITOURINARY: Denies hematuria, denies infections. MUSKULOSKELETAL: Denies pain, denies swelling. INTEGUMENTARY: Denies rash, denies eczema. NEUROLOGICAL: Denies recent memory loss, no recent seizure activity. PSYCHIATRIC: Denies anxiety, denies depression. HEMATOLOGIC/LYMPHATIC: Denies anemia, denies enlarged lymph nodes. Past Medical History Past Medical History: Asthma History of Any Multi-Drug Resistant Organisms: None Reported Past Surgical History: No Surgical Hx Reported Past Psychological History: No Psychological Hx Reported Smoking Status: Never smoker Past Alcohol Use History: Occasional Past Drug Use History: None Reported Medications and Allergies Home Medications Medication Instructions Recorded Confirmed Type Albuterol Nebulized [Ventolin 2.5 mg INHALATION RT-Q4H 08/02/22 08/03/22 History Nebulized] Albuterol Sulfate [Albuterol 2 puff INHALATION RT-QID PRN 08/02/22 08/03/22 History Sulfate Hfa] norgestimate-ethinyl estradioL 1 tab PO DAILY 08/02/22 08/03/22 History [[id number] Tablet] Budesonide/Formoterol Fumarate 2 puff INHALATION RT-BID 08/03/22 08/03/22 History [Symbicort 160-4.5 Mcg Inhaler] Montelukast [Singulair] 10 mg PO HS #30 tab 08/03/22 08/03/22 Rx predniSONE See Taper PO DAILY 08/03/22 08/03/22 History Allergies Allergy/AdvReac Type Severity Reaction Status Date / Time tree nut [Pecan] Allergy Anaphylaxis Verified 08/03/22 18:58 walnut Allergy Anaphylaxis Verified 08/03/22 18:58 Physical Exam Vitals: Vital Signs Temp Pulse Pulse Pulse Pulse Pulse Pulse 08/04/22 15:55 88 123 H 08/04/22 15:36 85 87 08/04/22 15:24 98 08/04/22 15:11 98 08/04/22 15:00 97.5 F L 102 H 08/04/22 11:32 100 08/04/22 11:20 100 08/04/22 07:37 96 08/04/22 07:25 96 08/04/22 07:00 97.4 F L 95 08/04/22 04:29 98 08/04/22 04:19 110 H 08/04/22 03:48 98.0 F 99 08/04/22 01:01 97 08/04/22 00:43 103 H 08/03/22 20:11 112 H 08/03/22 19:51 104 H 08/03/22 18:53 97.9 F 99 08/03/22 18:28 101 H Resp BP BP Pulse Ox Pulse Ox Pulse Ox Pulse Ox 08/04/22 15:55 94 L 95 08/04/22 15:36 92 L 11/21/22 15:24 08/04/22 15:11 08/04/22 15:00 18 111/71 93 L 08/04/22 11:32 08/04/22 11:20 08/04/22 07:37 08/04/22 07:25 93 L 08/04/22 07:00 16 105/63 93 L 08/04/22 04:29 08/04/22 04:19 08/04/22 03:48 17 117/72 95 08/04/22 01:01 08/04/22 00:43 08/03/22 20:11 08/03/22 19:51 08/03/22 18:53 18 117/74 94 L 08/03/22 18:28 28 H 103/67 94 L Pulse Ox 08/04/22 15:55 08/04/22 15:36 129 H 08/04/22 15:24 08/04/22 15:11 08/04/22 15:00 08/04/22 11:32 08/04/22 11:20 08/04/22 07:37 08/04/22 07:25 08/04/22 07:00 08/04/22 04:29 08/04/22 04:19 08/04/22 03:48 08/04/22 01:01 08/04/22 00:43 08/03/22 20:11 08/03/22 19:51 08/03/22 18:53 08/03/22 18:28 Intake and Output 08/04/22 08/04/22 08/04/22 06:59 14:59 22:59 Other: # Voids 2 1 GENERAL EXAM: Alert, pleasant 21-year-old female, on room air, comfortable in no apparent distress. HEAD: Normocephalic. EYES: Normal reaction of pupils, equal size. NOSE: Clear with pink turbinates. THROAT: No erythema or exudates. NECK: No masses, no JVD. CHEST: No chest wall deformity. LUNGS: Equal air entry with bilateral end expiratory wheeze. CVS: S1 and S2 normal with no audible murmur, regular rhythm. ABDOMEN: No hepatosplenomegaly, normal bowel sounds, no guarding or rigidity. SPINE: No scoliosis or deformity SKIN: No rashes CENTRAL NERVOUS SYSTEM: No focal deficits, tone is normal in all 4 extremities. EXTREMITIES: There is no peripheral edema. No clubbing, no cyanosis. Peripheral pulses are intact. Results - Laboratory Findings CBC and BMP: 08/03/22 16:33 08/03/22 16:33 PT/INR, D-dimer PT 10.5 sec (9.0-12.0) 08/03/22 16:33 INR 1.0 (<1.2) 08/03/22 16:33 D-Dimer 0.23 mg/L FEU (<0.60) 08/03/22 16:33 Abnormal lab findings: Abnormal Labs 08/03/22 08/03/22 16:33 16:33 WBC 19.6 H Neutrophils # 18.3 H Lymphocytes # 0.7 L Chloride 108 H Glucose 152 H - Diagnostic Findings Chest x-ray: image reviewed Assessment and Plan Assessment: Acute exacerbation of mild intermittent chronic bronchial asthma Recent admission and discharged on 08/03/2022 for asthma exacerbation and developed worsening shortness of breath and returned to the hospital on 08/03/2022 her chest x-ray showed no acute process Obesity Plan: The patient was seen and evaluated Recent chest x-ray revealed no acute process Continue Solu-Medrol, DuoNeb inhalations, Symbicort, Singulair Increase her activity as tolerated We will continue to follow and make further recommendations based on her clinical status I have personally seen and examined the patient, performed the documentation and the assessment and plan as written. Number of minutes spent on the visit: 20. Is a joint evaluation that was done along with the nurse practitioner. The patient is an acute asthma exacerbation. We will going to optimize asthma following that the patient needs to be seen in office for better asthma control. The treatment plan. We'll continue to follow.
[2022-08-04 17:58] LABS: Glucose,Whole Blood 93 mg/dL (70-110)
[2022-08-04] MEDS: INSULIN ASPART (NovoLOG) 100 UNIT/ML VIAL SQ SCH ×2 (18:01→20:22)
[2022-08-04] MEDS: MONTELUKAST 10 MG TAB PO SCH (18:03)
[2022-08-04 20:20] LABS: Glucose,Whole Blood 115 mg/dL (70-110)
[2022-08-04] MEDS: MELATONIN 3 MG TABLET PO SCH (20:39)
[2022-08-05] MEDS: methylPREDNISolone SOD SUCCI 125 MG/2 ML VIAL IV SCH ×3 (00:11→14:52)
[2022-08-05] MEDS: IPRATROPIUM-ALBUTEROL 3 ML NEB INHALATION PRN ×6 (00:23→23:34)
[2022-08-05 06:22] LABS: Glucose,Whole Blood 135 mg/dL (70-110)
[2022-08-05] MEDS: INSULIN ASPART (NovoLOG) 100 UNIT/ML VIAL SQ SCH ×4 (06:25→20:08)
[2022-08-05] MEDS: PANTOPRAZOLE 40 MG/10 ML VIAL IVP SCH (09:06)
[2022-08-05] MEDS: SYMBICORT 160-4.5 MCG INHALER INHALATION SCH (09:11)
[2022-08-05] MEDS: LORATADINE 10 MG TAB PO SCH (10:44)
[2022-08-05 11:29] LABS: Glucose,Whole Blood 119 mg/dL (70-110)
--- NOTE | 2022-08-05 14:46 | P.PN ---
Subjective Progress Note Date: 08/05/22 This a very pleasant 21-year-old female patient who follows with Dr. Godinez as her primary care provider. She has a history of mild intermittent chronic bronchial asthma and is maintained on Symbicort, Singulair, albuterol in the outpatient setting. She presented here to the emergency room yesterday with complaints of shortness of breath. She was just discharged from the hospital earlier in the morning and when she got home she stated she was still feeling short of breath. She came back to the emergency room for the same. She is seen today in consultation on the regular medical floor. She is currently sitting up in bed. Awake and alert in no acute distress. She is maintaining good O2 sat urations in the 90s on room air. She does have some end expiratory wheeze. Dry nonproductive cough. No fever or chills. White count 19.6. Hemoglobin 14.3. D-dimer 0.23. Sodium 140. Potassium 4.2. Bicarb 22. BUN 16. Creatinine 0.67. She has been initiated on Symbicort, DuoNeb inhalations, IV Solu-Medrol and Singulair. She is breathing easier today compared to yesterday. Chest x- ray from 08/02/2022 revealed no acute pulmonary process. The patient is seen today 08/05/2022 in follow-up on the regular medical floor. She is currently sitting up in bed. Awake and alert in no acute distress. She is maintaining O2 saturations in the low 90s on room air. She did drop to 87%. Slow improvement but not quite back to her baseline. Glucose 119. She is continued on Symbicort, DuoNeb inhalations, IV Solu-Medrol, Singulair. Objective - Vital Signs Vital signs: Vital Signs Temp 97.6 F 08/05/22 12:42 Pulse 97 08/05/22 13:09 Resp 14 08/05/22 12:42 BP 117/69 08/05/22 12:42 Pulse Ox 90 L 08/05/22 12:59 FiO2 Intake & Output 08/04/22 08/05/22 08/05/22 18:59 06:59 18:59 Intake Total 478 Balance 478 Intake: Oral 478 Other: # Voids 1 2 2 - Exam GENERAL EXAM: Alert, 21-year-old female, on room air, comfortable in no apparent distress. HEAD: Normocephalic. EYES: Normal reaction of pupils, equal size. NOSE: Clear with pink turbinates. THROAT: No erythema or exudates. NECK: No masses, no JVD. CHEST: No chest wall deformity. LUNGS: Equal air entry with bilateral end expiratory wheeze. CVS: S1 and S2 normal with no audible murmur, regular rhythm. ABDOMEN: No hepatosplenomegaly, normal bowel sounds, no guarding or rigidity. SPINE: No scoliosis or deformity SKIN: No rashes CENTRAL NERVOUS SYSTEM: No focal deficits, tone is normal in all 4 extremities. EXTREMITIES: There is no peripheral edema. No clubbing, no cyanosis. Peripheral pulses are intact. - Labs CBC & Chem 7: 08/03/22 16:33 08/03/22 16:33 Labs: Abnormal Lab Results - Last 24 Hours (Table) 08/04/22 08/05/22 08/05/22 Range/Units 20:18 06:08 11:27 POC Glucose (mg/dL) 115 H 135 H 119 H (70-110) mg/dL Assessment and Plan Assessment: Acute exacerbation of mild intermittent chronic bronchial asthma Recent admission and discharged on 08/03/2022 for asthma exacerbation and developed worsening shortness of breath and returned to the hospital on 08/03/2022 her chest x-ray showed no acute process Obesity Plan: The patient was seen and evaluated Improved but not quite back to her baseline Continue Solu-Medrol, DuoNeb inhalations, Symbicort, Singulair Increase her activity as tolerated We will continue to follow I have personally seen and examined the patient, performed the documentation and the assessment and plan as written. Number of minutes spent on the visit: 10. This is a joint evaluation that was done along with the PARTS COORDINATOR and the patient is gradually improving. Oxygen patient is improved although the patient is not able to maintain a pulse ox above 90% at all times. I'm anticipating further over the next 24 hours and based on that, I decided to keep the patient hasn't followed 24 hours for IV steroid treatment. She is obviously improving and she is less short of breath. She is also on Symbicort as maintenance and DuoNeb about treatments [id number].
--- NOTE | 2022-08-05 15:26 | P.PN ---
Subjective Progress Note Date: 08/05/22 H&P Date: 08/04/22 This is a 21-year-old female discharged yesterday with diagnosis of acute asthma exacerbation, exact trigger unclear. Treated with nebulized bronchodilators, IV steroids , oxygen and cleared by pulmonary for discharge. Reports at home she continued to feel wheezy, short of breath, attempted using her nebulized albuterol with minimal improvement and returned to the ER. Currently maintained on nebulized bronchodilators, IV steroids. Afebrile, elevated WBC, on steroids. Coronavirus not detected. 08/05/2022 maintained on nebulized bronchodilators, IV steroids, Symbicort, Singulair with improvement. Weaned off of O2, maintaining O2 sats in the low 90s. O2 sat on room air after ambulation 87%. Afebrile. Objective - Vital Signs Vital signs: Vital Signs Temp 97.6 F 08/05/22 12:42 Pulse 97 08/05/22 13:09 Resp 14 08/05/22 12:42 BP 117/69 08/05/22 12:42 Pulse Ox 90 L 08/05/22 12:59 FiO2 Intake & Output 08/04/22 08/05/22 08/05/22 18:59 06:59 18:59 Intake Total 478 Balance 478 Intake: Oral 478 Other: # Voids 1 2 2 - Exam GENERAL: Alert and oriented 3, sitting up in chair, no acute distress EYES: Pupils equal round and reactive to light, extraocular movements intact, sclera anicteric, conjunctiva are normal. ENT:nares patent, oropharynx clear without exudates. Moist mucous membranes. NECK:supple, no JVD LUNGS: Unlabored, minimal expiratory wheeze HEART: Regular rate and rhythm without murmurs, rubs or gallops.S1S2 Normal. No edema ABDOMEN: Soft, nontender, normoactive bowel sounds. No guarding, no rebound. No masses appreciated. NEUROLOGICAL: Cranial nerves II through XII grossly intact. No focal deficits SKIN: Warm, Dry, normal turgor, no rashes noted. - Labs CBC & Chem 7: 08/03/22 16:33 08/03/22 16:33 Labs: Abnormal Lab Results - Last 24 Hours (Table) 08/04/22 08/05/22 08/05/22 Range/Units 20:18 06:08 11:27 POC Glucose (mg/dL) 115 H 135 H 119 H (70-110) mg/dL Assessment and Plan Assessment: Acute Asthma exacerbation Acute hypoxic respiratory failure secondary to the above Morbid obesity, BMI 37.1 Plan: Continue on current medication regime, monitoring and symptomatic treatment. Maintain nebulized bronchodilators, further tapering of IV steroids. Increase ambulation as tolerated. Discharge planning in progress for tomorrow pending final DC recommendations and clearance prior pulmonary. The impression and plan of care has been dictated as directed. : I performed a history and examination of this patient, discussed the same with the dictator. I agree with the dictator's note ,documented as a scribe. Any additional findings or plans will be noted.
[2022-08-05] MEDS: methylPREDNISolone SOD SUCCI 40 MG/ML 1 ML VIAL IV SCH (15:54)
[2022-08-05 16:41] LABS: Glucose,Whole Blood 124 mg/dL (70-110)
[2022-08-05] MEDS: MONTELUKAST 10 MG TAB PO SCH (17:58)
[2022-08-05 20:07] LABS: Glucose,Whole Blood 100 mg/dL (70-110)
[2022-08-05] MEDS: MELATONIN 3 MG TABLET PO SCH (20:55)
[2022-08-06] MEDS: methylPREDNISolone SOD SUCCI 40 MG/ML 1 ML VIAL IV SCH ×2 (00:03→08:21)
[2022-08-06] MEDS: IPRATROPIUM-ALBUTEROL 3 ML NEB INHALATION PRN ×3 (03:48→15:11)
[2022-08-06 06:05] LABS: Glucose,Whole Blood 166 mg/dL (70-110)
[2022-08-06] MEDS: INSULIN ASPART (NovoLOG) 100 UNIT/ML VIAL SQ SCH ×2 (06:16→11:50)
[2022-08-06 06:31] VITALS: RESP 18
[2022-08-06] MEDS ORDERED: PANTOPRAZOLE 40 MG TABLET PO SCH (07:30)
[2022-08-06] MEDS: SYMBICORT 160-4.5 MCG INHALER INHALATION SCH (07:35)
[2022-08-06 07:45] VITALS: BP 112/71; TEMP 98.3
[2022-08-06] MEDS: LORATADINE 10 MG TAB PO SCH (08:21)
[2022-08-06 11:37] LABS: Glucose,Whole Blood 116 mg/dL (70-110)
--- NOTE | 2022-08-06 14:57 | P.DS ---
Providers Date of admission: 08/06/22 07:39 Expected date of discharge: 08/06/22 Attending physician: Jairo Godinez Consults: 08/03/22 18:12 Consult Physician Routine Consulting Provider: Flash Dye Reason/Comments: Asthma exas Do you want consulting provider notified?: Yes, Notify in am Primary care physician: Jairo Godinez - Discharge Diagnosis(es) (1) Asthma with status asthmaticus Current Visit: Yes Status: Acute (2) Leukocytosis, unspecified Current Visit: No Status: Acute (3) Sinus tachycardia Current Visit: No Status: Acute Hospital Course: 08/04/22 This is a 21-year-old female discharged yesterday with diagnosis of acute asthma exacerbation, exact trigger unclear. Treated with nebulized bronchodilators, IV steroids , oxygen and cleared by pulmonary for discharge. Reports at home she continued to feel wheezy, short of breath, attempted using her nebulized albuterol with minimal improvement and returned to the ER. Currently maintained on nebulized bronchodilators, IV steroids. Afebrile, elevated WBC, on steroids. Coronavirus not detected. 08/05/2022 maintained on nebulized bronchodilators, IV steroids, Symbicort, Sin gulair with improvement. Weaned off of O2, maintaining O2 sats in the low 90s. O2 sat on room air after ambulation 87%. Afebrile. August 06, 2022: patient is doing well. She is maintaining oxygen saturation on rumor greater than 92%. She's also able to ambulate greater than 90%. We discussed various options after discharge regarding her care. Waiting for the recommendations pulmonology to complete the discharge. Patient Condition at Discharge: Stable Plan - Discharge Summary New Discharge Prescriptions: New Ipratropium-Albuterol Nebulize [Duoneb 0.5 mg-3 mg/3 ml Soln] 3 ml INHALATION Q4H PRN #100 each PRN Reason: Shortness Of Breath Montelukast [Singulair] 10 mg PO Q24H #30 tab Loratadine [Claritin] 10 mg PO HS tab Melatonin 6 mg PO HS tab Pantoprazole [Protonix] 40 mg PO AC-BRKFST #15 tab Continue Albuterol Sulfate [Albuterol Sulfate Hfa] 2 puff INHALATION RT-QID PRN PRN Reason: Shortness Of Breath Montelukast [Singulair] 10 mg PO HS #30 tab predniSONE See Taper PO DAILY Budesonide/Formoterol Fumarate [Symbicort 160-4.5 Mcg Inhaler] 2 puff INHALA TION RT-BID norgestimate-ethinyl estradioL [Hwv-Dm-Bodvrnso Tablet] 1 tab PO DAILY Discontinued Albuterol Nebulized [Ventolin Nebulized] 2.5 mg INHALATION RT-Q4H Discharge Medication List Albuterol Sulfate [Albuterol Sulfate Hfa] 2 puff INHALATION RT-QID PRN 08/02/22 [History] norgestimate-ethinyl estradioL [Xzw-We-Nvfsmcwg Tablet] 1 tab PO DAILY 08/02/22 [History] Budesonide/Formoterol Fumarate [Symbicort 160-4.5 Mcg Inhaler] 2 puff INHALATION RT-BID 08/03/22 [History] Montelukast [Singulair] 10 mg PO HS #30 tab 08/03/22 [Rx] predniSONE See Taper PO DAILY 08/03/22 [History] Loratadine [Claritin] 10 mg PO HS tab 08/05/22 [Rx] Ipratropium-Albuterol Nebulize [Duoneb 0.5 mg-3 mg/3 ml Soln] 3 ml INHALATION Q4H PRN #100 each 08/06/22 [Rx] Melatonin 6 mg PO HS tab 08/06/22 [Rx] Montelukast [Singulair] 10 mg PO Q24H #30 tab 08/06/22 [Rx] Pantoprazole [Protonix] 40 mg PO AC-BRKFST #15 tab 08/06/22 [Rx] Follow up Appointment(s)/Referral(s): [facility],Equipment [NON-STAFF] - 1 Week Claudia Yousif NPC [Nurse Practitioner] - 2 Weeks Jairo Godinez MD [Primary Care Provider] - 3 Days Activity/Diet/Wound Care/Special Instructions: Nebulizer supplied by [facility]
--- NOTE | 2022-08-06 15:13 | P.PN ---
Subjective Progress Note Date: 08/06/22 This a very pleasant 21-year-old female patient who follows with Dr. Godinez as her primary care provider. She has a history of mild intermittent chronic bronchial asthma and is maintained on Symbicort, Singulair, albuterol in the outpatient setting. She presented here to the emergency room yesterday with complaints of shortness of breath. She was just discharged from the hospital earlier in the morning and when she got home she stated she was still feeling short of breath. She came back to the emergency room for the same. She is seen today in consultation on the regular medical floor. She is currently sitting up in bed. Awake and alert in no acute distress. She is maintaining good O2 sat urations in the 90s on room air. She does have some end expiratory wheeze. Dry nonproductive cough. No fever or chills. White count 19.6. Hemoglobin 14.3. D-dimer 0.23. Sodium 140. Potassium 4.2. Bicarb 22. BUN 16. Creatinine 0.67. She has been initiated on Symbicort, DuoNeb inhalations, IV Solu-Medrol and Singulair. She is breathing easier today compared to yesterday. Chest x- ray from 08/02/2022 revealed no acute pulmonary process. The patient is seen today 08/05/2022 in follow-up on the regular medical floor. She is currently sitting up in bed. Awake and alert in no acute distress. She is maintaining O2 saturations in the low 90s on room air. She did drop to 87%. Slow improvement but not quite back to her baseline. Glucose 119. She is continued on Symbicort, DuoNeb inhalations, IV Solu-Medrol, Singulair. The patient is seen today 08/06/2022 in follow-up on the regular medical floor. She is currently sitting up in bed. Awake and alert in no acute distress. She is now maintaining good O2 saturations in the 90s on room air. Blood glucose 116. Continued on DuoNeb inhalations, Symbicort, IV Solu-Medrol, Singulair. Objective - Vital Signs Vital signs: Vital Signs Temp 98.3 F 08/06/22 07:00 Pulse 90 08/06/22 07:55 Resp 18 08/06/22 07:00 BP 112/71 08/06/22 07:00 Pulse Ox 96 08/06/22 13:15 FiO2 21 08/06/22 07:36 Intake & Output 08/05/22 08/06/22 08/06/22 18:59 06:59 18:59 Intake Total 478 480 Balance 478 480 Intake: Oral 478 480 Other: # Voids 2 1 2 - Exam GENERAL EXAM: Alert, very pleasant 21-year-old female, on room air, comfortable in no apparent distress. HEAD: Normocephalic. EYES: Normal reaction of pupils, equal size. NOSE: Clear with pink turbinates. THROAT: No erythema or exudates. NECK: No masses, no JVD. CHEST: No chest wall deformity. LUNGS: Equal air entry with faint bilateral end expiratory wheeze. CVS: S1 and S2 normal with no audible murmur, regular rhythm. ABDOMEN: No hepatosplenomegaly, normal bowel sounds, no guarding or rigidity. SPINE: No scoliosis or deformity SKIN: No rashes CENTRAL NERVOUS SYSTEM: No focal deficits, tone is normal in all 4 extremities. EXTREMITIES: There is no peripheral edema. No clubbing, no cyanosis. Peripheral pulses are intact. - Labs CBC & Chem 7: 08/03/22 16:33 08/03/22 16:33 Labs: Abnormal Lab Results - Last 24 Hours (Table) 08/05/22 08/06/22 08/06/22 Range/Units 16:39 06:03 11:26 POC Glucose (mg/dL) 124 H 166 H 116 H (70-110) mg/dL Assessment and Plan Assessment: Acute exacerbation of mild intermittent chronic bronchial asthma Recent admission and discharged on 08/03/2022 for asthma exacerbation and developed worsening shortness of breath and returned to the hospital on 08/03/2022 her chest x-ray showed no acute process Obesity Plan: The patient was seen and evaluated Improved and cleared for discharge from the pulmonary standpoint Continue a prednisone taper, DuoNeb inhalations, Symbicort, Singulair Follow-up in our office in 1 week for further workup I have personally seen and examined the patient, performed the documentation and the assessment and plan as written. Number of minutes spent on the visit: 10. Evaluation that was done along with the nurse practitioner. I agree on the above-mentioned plan. The patient was seen in conjunction with the [employer] C[employer]. This evaluation was done in more than 20 minutes.
[2022-08-06 15:22] VITALS: PULSE 92
== END 2022-08-06 15:25 | disposition home or self-care (01) | DRG 202 ==
LOC: EC 15:13 → 6NMEDSUR 18:12 → OBSVTOIN 08-06 07:39
PROVIDERS: ADMIT Family Medicine; ATTEND Family Medicine
DX: J45.22 Mild intermittent asthma with status asthmaticus (principal); J96.01 Acute respiratory failure with hypoxia; E66.01 Morbid (severe) obesity due to excess calories; D72.829 Elevated white blood cell count, unspecified; Z68.37 Body mass index [BMI] 37.0-37.9, adult; Z79.51 Long term (current) use of inhaled steroids; Z79.3 Long term (current) use of hormonal contraceptives; Z79.899 Other long term (current) drug therapy; Z91.018 Allergy to other foods
CPT/HCPCS: 36415; 80053; 83036; 83735; 83880; 84484; 85025; 85379; 85610; 85730; 94640; 94760; 99285